=== PATIENT | female | born 1975 | race Caucasian/White ===

== ENCOUNTER 2018-05-09 16:37 | Emergency (ER) | payer OTHER ==
[~2018-05-09] VITALS: Ht 162.6 cm; Wt 72.6 kg
[~2018-05-09 16:37] MED LIST: ACETAMINOPHEN-1 EAC1 PO; ALLEGRA30 MG; FLEXERIL PO; FLONASE; HYDROCODON-ACE1 EAC7 PO; IBUPROFEN 600600 M1; IBUPROFEN 600600 M1 PO; IBUPROFEN 800800 M1 PO; LORTAB 5-500 T1 EAC1 PO; NOHOMEMEDICATIONS; NORCO 5-325 TA1 EACH PO; ONDANSETRON HCL4 M2 PO; OSELB75 PO; PERCOCET 5-3251 EACH PO; PHENERGAN 25 MG25 MG PO; ROBAXIN 750 MG750 M1 PO; SINGULAIR 10 MG10 M1; ULTRAM 50MG TAB50 MG PO; VICODIN 5-3001 EACH PO; VICODIN 5-5001 EACH
[2018-05-09] MEDS ORDERED: ALLEGRA-D 12 H1 EAC1 PO (16:53)
[2018-05-09 17:23] LABS: URINE BILIRUBIN NEGATIVE (Negative); URINE BLOOD NEGATIVE (Negative); URINE CLARITY CLEAR; URINE COLOR YELLOW; URINE GLUCOSE-RANDOM NEGATIVE (Negative); URINE KETONES NEGATIVE (Negative); URINE LEUKOCYTES-REFLEX NEGATIVE (Negative); URINE NITRITE-REFLEX NEGATIVE (Negative); URINE PROTEIN NEGATIVE (Negative); URINE SPECIFIC GRAVITY >= 1.030 (1.005-1.030); URINE UROBILINOGEN 0.2 E.U./dl (0.2-1.0)
[2018-05-09] MEDS ORDERED: ZANAFLEX4 MG PO (18:17)
[2018-05-09] MEDS ORDERED: MEDROLDOSEPACK PO (18:17)
[2018-05-09] MEDS ORDERED: IBU600 MG PO (18:17)
[2018-05-09 18:37] VITALS: BP 121/62
== END 2018-05-09 18:38 | disposition home or self-care (01) ==
LOC: M.ERS 16:37
PROVIDERS: Nurse Practitioner Family
DX: M54.16 Radiculopathy, lumbar region (principal); J44.9 Chronic obstructive pulmonary disease, unspecified; M41.9 Scoliosis, unspecified; M06.9 Rheumatoid arthritis, unspecified; M32.9 Systemic lupus erythematosus, unspecified; Z88.1 Allergy status to other antibiotic agents

== ENCOUNTER 2018-12-08 12:44 | Emergency (ER) | payer OTHER, MEDICAID ==
[~2018-12-08] VITALS: Ht 162.6 cm; Wt 63.5 kg
[~2018-12-08 12:44] MED LIST changes: +ALLEGRA-D 12 H1 EAC1 PO; +IBU600 MG PO; +MEDROLDOSEPACK PO; +ZANAFLEX4 MG PO
[2018-12-08] MEDS ORDERED: AUGMENTIN 500-1 EACH PO (13:17)
[2018-12-08 14:04] VITALS: BP 102/51
== END 2018-12-08 14:05 | disposition home or self-care (01) ==
LOC: M.ERS 12:44
DX: H18.822 Corneal disorder due to contact lens, left eye (principal); R05 Cough; R09.81 Nasal congestion; M32.9 Systemic lupus erythematosus, unspecified; M06.9 Rheumatoid arthritis, unspecified; J45.909 Unspecified asthma, uncomplicated; M41.9 Scoliosis, unspecified; J44.9 Chronic obstructive pulmonary disease, unspecified; Z88.1 Allergy status to other antibiotic agents; Z90.81 Acquired absence of spleen

== ENCOUNTER 2019-03-26 14:34 | Emergency (ER) | payer OTHER, MEDICAID ==
[~2019-03-26] VITALS: Ht 162.6 cm; Wt 61.2 kg
[~2019-03-26 14:34] MED LIST changes: +AUGMENTIN 500-1 EACH PO
[2019-03-26 15:08] LABS: URINE BILIRUBIN NEGATIVE (Negative); URINE BLOOD 2+ (Negative); URINE CLARITY CLOUDY; URINE COLOR YELLOW; URINE GLUCOSE-RANDOM NEGATIVE (Negative); URINE KETONES NEGATIVE (Negative); URINE PROTEIN 2+ (Negative); URINE UROBILINOGEN 0.2 E.U./dl (0.2-1.0)
[2019-03-26 15:10] LABS: URINE LEUKOCYTES-REFLEX 2+ (Negative); URINE NITRITE-REFLEX POSITIVE (Negative)
[2019-03-26 15:13] LABS: ABSOLUTE BASOPHILS 0.1 thou/uL (0.0-0.2); ABSOLUTE EOSINOPHILS 0.1 thou/uL (0.0-0.7); ABSOLUTE MONOCYTES 0.7 thou/uL (0.0-1.2); ABSOLUTE NEUTROPHILS 10.8 thou/uL (1.6-8.1); BASOPHILS 0.6 %; EOSINOPHILS 0.5 %; HEMATOCRIT 40.4 % (37.0-47.0); HEMOGLOBIN 13.2 gm/dL (12.0-15.0); LYMPHOCYTES 14.5 %; MCH 29.7 pg (26.0-34.0); MCHC 32.7 g/dL (28.0-37.0); MCV 90.9 fL (80.0-100.0); MONOCYTES 5.4 %; MPV 9.6 fl. (7.2-11.1); NUCLEATED RBCS 0 /100WBC; PLATELET COUNT* 466 thou/uL (150-400); RBC 4.45 mil/uL (4.20-5.00); RDW-CV 13.2 % (10.5-14.5); WBC 13.7 thou/uL (4.0-11.0)
[2019-03-26 15:21] LABS: CALCIUM 8.9 mg/dL (8.5-10.1); CREATININE 0.9 mg/dL (0.6-1.3); POTASSIUM 3.2 mmol/L (3.5-5.1)
[2019-03-26 15:31] LABS: MUCUS >6 Heavy strn/LPF (None Seen); SQUAMOUS >10 Many /LPF (0-3)
[2019-03-26 15:32] LABS: CASTS None Seen /LPF (None Seen); CRYSTALS None Seen /LPF (None Seen); URINE RBC 3-10 Few /HPF (0-2)
[2019-03-26 15:40] LABS: ALBUMIN 3.3 g/dL (3.4-5.0); TOTAL BILIRUBIN 0.5 mg/dL (<0.1-1.0); TOTAL PROTEIN 8.1 g/dL (6.4-8.2)
[2019-03-26 16:29] LABS: AMP/METHAMP POSITIVE (Negative); BARBITURATES Negative (Negative); BENZODIAZEPINES Negative (Negative); COCAINE Negative (Negative); METHADONE Negative (Negative); OPIATES Negative (Negative); PCP Negative (Negative); THC Negative (Negative)
[2019-03-26] MEDS ORDERED: BACTRIM DS TAB1 EACH PO (17:02)
[2019-03-26 17:14] VITALS: BP 95/38
== END 2019-03-26 17:15 | disposition left against medical advice (07) ==
LOC: M.ERS 14:34
PROVIDERS: Emergency Medicine Emergency Medical Services
DX: N12 Tubulo-interstitial nephritis, not specified as acute or chronic (principal); A59.9 Trichomoniasis, unspecified; R51 Headache; M06.9 Rheumatoid arthritis, unspecified; M32.9 Systemic lupus erythematosus, unspecified; M41.9 Scoliosis, unspecified; J44.9 Chronic obstructive pulmonary disease, unspecified; Z88.1 Allergy status to other antibiotic agents; Z90.81 Acquired absence of spleen

== ENCOUNTER 2019-04-14 03:00 | Emergency (ER) | payer OTHER, MEDICAID ==
[~2019-04-14] VITALS: Ht 162.6 cm; Wt 59.0 kg
[~2019-04-14 03:00] MED LIST changes: +BACTRIM DS TAB1 EACH PO
[2019-04-14 03:18] LABS: URINE BILIRUBIN NEGATIVE (Negative); URINE BLOOD NEGATIVE (Negative); URINE CLARITY CLEAR; URINE COLOR YELLOW; URINE GLUCOSE-RANDOM NEGATIVE (Negative); URINE KETONES NEGATIVE (Negative); URINE LEUKOCYTES-REFLEX NEGATIVE (Negative); URINE NITRITE-REFLEX NEGATIVE (Negative); URINE PROTEIN TRACE (Negative); URINE SPECIFIC GRAVITY >= 1.030 (1.005-1.030)
[2019-04-14 03:22] LABS: AMP/METHAMP POSITIVE (Negative); BARBITURATES Negative (Negative); BENZODIAZEPINES Negative (Negative); COCAINE Negative (Negative); METHADONE Negative (Negative); OPIATES Negative (Negative); PCP Negative (Negative); THC Negative (Negative)
[2019-04-14] MEDS ORDERED: FLEXERIL PO (03:27)
[2019-04-14 03:43] VITALS: BP 104/55
== END 2019-04-14 03:44 | disposition home or self-care (01) ==
LOC: M.ERS 03:00
PROVIDERS: Emergency Medicine
DX: R25.2 Cramp and spasm (principal); M06.9 Rheumatoid arthritis, unspecified; M32.9 Systemic lupus erythematosus, unspecified; J44.9 Chronic obstructive pulmonary disease, unspecified; M41.9 Scoliosis, unspecified; Z88.1 Allergy status to other antibiotic agents; Z79.899 Other long term (current) drug therapy